=== PATIENT | male | born 1945 | race Caucasian/White ===

== ENCOUNTER → 2017-01-08 | Day surgery (SDC) | payer MEDICARE, OTHER ==
[~2017-01-08] VITALS: Ht 185.4 cm; Wt 123.5 kg
[~2017-01-08] MED LIST: ASCO500T PO; CANA300T PO; CETI-14 PO; CHLORHEXIDINE GLUCONATE 2 % 1 PACK (2 CLOTHS) TOPICAL PRN; CYCLOPENTOLATE HCL 1% OPHT SOLN 2 ML BTL ONE; DIFL0.0512 LEFT EYE; FERR324T4 PO; FURO40TA PO; HIGHTAB3 PO; HYALURONIDASE/LIDOCAINE/EPINEPHRINE/BUPIVACAINE 4.5 ML SYR LEFT EYE ONE; HYALURONIDASE/LIDOCAINE/EPINEPHRINE/BUPIVACAINE 6 ML SYR LEFT EYE ONE; INSULIN HUMAN REGULAR 1,000 UNITS/10 ML VIAL SQ PRN; LACTATED RINGER'S 1000 ML IV PRN; LANTUS2P SQ; LISI10TA3 PO; LYRI150C PO; LYRI75CA PO; METF1000 PO; METOPROLOL TARTRATE 25 MG TAB PO PRN; NEPA0.3D LEFT EYE; NEXI40CA PO; NRDRIP SQ; OCUVTAB PO; ONDANSETRON HCL 4 MG/2 ML VIAL IV PUSH ONE; PHENYLEPHRINE HCL 10% OPTH SOLN 5 ML BTL ONE; PIOG45TA3 PO; POTA10TA15 PO; POVIDONE IODINE 5% (ANTISEPSIS KIT) 4 APPLICATIONS EACH NARE PRN; PROPOFOL 200 MG/20 ML AMP ONE; ROSU1TAB6 PO; SODIUM CHLORID 0.9% 500 ML IV PRN; TOBRAMYCIN/DEXAMETHASONE OPTH OINT 3.5 GM TUBE ONE; TROPICAMIDE 1% OPHT SOLN 15 ML BTL ONE
[2017-01-08 08:30] VITALS: BP 130/60; PULSE 60; RESP 16; TEMP 98; O2SAT 100
[2017-01-08 08:35] VITALS: PULSE 60
[2017-01-08] MEDS: PHENYLEPHRINE HCL 10% OPTH SOLN 5 ML BTL LEFT EYE SCH ×3 (08:35→08:45)
[2017-01-08] MEDS: TROPICAMIDE 1% OPHT SOLN 15 ML BTL LEFT EYE SCH ×3 (08:35→08:45)
[2017-01-08] MEDS: CYCLOPENTOLATE HCL 1% OPHT SOLN 2 ML BTL LEFT EYE SCH ×3 (08:35→08:45)
[2017-01-08] MEDS: TETRACAINE 0.5% OPTH SOLN 4 ML BTL LEFT EYE SCH ×3 (08:35→08:45)
[2017-01-08 09:17] VITALS: PULSE 60
[2017-01-08 10:02] VITALS: TEMP 97.2
--- NOTE | 2017-01-08 10:11 | PD.OP ---
Operative Report Date of Surgery: Jan 08, 2017 Preoperative Diagnosis: (1) Nuclear sclerotic cataract of left eye Postoperative Diagnosis: (1) Pseudophakia of left eye Procedure: phacoemulsification and intraocular lens implant left eye Anesthesia: retrobulbar block, MAC Surgeon: Carolyn Herrera Corporate Development Analyst(s): none Operation and Findings: Patient was consented for surgery, given a retrobulbar block by anesthesia, and taken back to the operating room. He was prepped and draped in the usual sterile fashion for ophthalmic surgery. A wire lid speculum was placed in the left eye. A paracentesis incision was created at the 5 o'clock position on the limbus. Vision blue dye and viscoelastic was injected into the anterior chamber. The main incision was created at the 2 o'clock position on the limbus with a 2.4 mm keratome. A continuous curvilinear capsulorrhexis was made on the anterior lens capsule. Hydrodissection was used to separate the lens from the capsule. Phacoemulsification was used to remove the lens nucleus material. Irrigation and aspiration was used to remove the remaining cortical material. The lens implant ([id number] 20.5D SN [id number]) was placed in the capsular bag. Viscoelastic was removed with irrigation and aspiration. The incisions were irrigated and found to be watertight. Tobradex ointment, a patch, and shield were placed on the left eye. The patient was sent to PACU in stable condition. Carolyn Herrera MD Jan 08, 2017 10:11
[2017-01-08 10:40] VITALS: BP 120/59; PULSE 65; RESP 16; O2SAT 98
== END | disposition home or self-care (01) ==
LOC: PHSDC 07:23
PROVIDERS: ATTEND Ophthalmology
DX: H25.12 Age-related nuclear cataract, left eye (principal); Z96.1 Presence of intraocular lens; E11.9 Type 2 diabetes mellitus without complications; Z79.4 Long term (current) use of insulin
CPT/HCPCS: 00142; 66984; 82948; J2405; J7040; V2632

== ENCOUNTER → 2017-04-15 | Day surgery (SDC) | payer MEDICARE, OTHER ==
[~2017-04-15] MED LIST changes: -CHLORHEXIDINE GLUCONATE 2 % 1 PACK (2 CLOTHS) TOPICAL PRN; -CYCLOPENTOLATE HCL 1% OPHT SOLN 2 ML BTL ONE; +DEXAMETHASONE SOD PHOS 4 MG/ML VIAL IV ONE; +GENTAMICIN SULFATE 80 MG/2 ML VIAL ONE; -HIGHTAB3 PO; -HYALURONIDASE/LIDOCAINE/EPINEPHRINE/BUPIVACAINE 4.5 ML SYR LEFT EYE ONE; -HYALURONIDASE/LIDOCAINE/EPINEPHRINE/BUPIVACAINE 6 ML SYR LEFT EYE ONE; -INSULIN HUMAN REGULAR 1,000 UNITS/10 ML VIAL SQ PRN; +LACTATED RINGER'S 1000 ML INJ 1,000 ML ONE; -LACTATED RINGER'S 1000 ML IV PRN; +LIDOCAINE HCL 1% PF 5 ML AMPULE OTHER ONE; -METOPROLOL TARTRATE 25 MG TAB PO PRN; +MIDAZOLAM HCL 2 MG/2 ML VIAL ONE; -ONDANSETRON HCL 4 MG/2 ML VIAL IV PUSH ONE; -PHENYLEPHRINE HCL 10% OPTH SOLN 5 ML BTL ONE; -POVIDONE IODINE 5% (ANTISEPSIS KIT) 4 APPLICATIONS EACH NARE PRN; +PROPOFOL 200 MG/20 ML AMP IV ONE; -PROPOFOL 200 MG/20 ML AMP ONE; -SODIUM CHLORID 0.9% 500 ML IV PRN; +SODIUM CHLORIDE 0.9% 100 ML MINIBAG IV ONE; -TOBRAMYCIN/DEXAMETHASONE OPTH OINT 3.5 GM TUBE ONE; -TROPICAMIDE 1% OPHT SOLN 15 ML BTL ONE
--- NOTE | 2017-04-15 12:21 | TN ---
cc: SHAY CURRY M.D. DATE OF SURGERY 04/15/2017 PREOPERATIVE DIAGNOSIS Urethral stricture and (ICD-10 code N35.9) POSTOPERATIVE DIAGNOSIS Urethral stricture and (ICD-10 code N35.9) PROCEDURE Direct visual internal urethrotomy (DVIU) (CPT code 01176) INDICATIONS Mr. Anton is a 71-year-old gentleman who recently underwent a local cystourethroscopy for lower urinary tract symptoms with a history of a urethral stricture and was found to have a pendulous urethral stricture who presents now for definitive treatment. FINDINGS The pendulous urethra shows a long approximately a centimeter dense fibrous stricture. Once past that stricture, there are no additional strictures within the urethra. The prostate shows some bilateral hyperplasia with an elevated and mildly obstructed bladder neck. There is some mild trabeculations of the bladder, but no tumors, diverticula, cellules, or calcifications. The ureteral orifice is normal size, shape and position effluxing clear urine bilaterally. PROCEDURE IN DETAIL The procedure, as well as risks and benefits were explained to the patient. Informed consent was obtained. The patient was taken to the major operative theater where he was placed in the supine position. The patient was identified, as well as the operative site. A universal time-out was performed in the standard fashion. At this time, general anesthetic and prophylactic intravenous antibiotics consisting of gentamicin 80 mg was administered. After adequate anesthetic, the patient was placed in low dorsolithotomy position, prepped and draped in the usual sterile fashion. At this time, a 22.5 [place]er cystoscope with a 30 degree lens was inserted into urethra to the level of the stricture. At this time, a 0.035 inches hybrid guidewire was then placed through the strictured area and presumably into the bladder. The cystoscope was removed leaving the guidewire in place which was attached to the drape. Then using an optical urethrotome with a serrated blade, direct visual internal urethrotomy was performed in standard fashion at the 12 o'clock position. The entire stricture was incised to an appropriate channel, then the scope was placed into the bladder and inspection of bladder was performed with the above findings. At this time, the cystoscope was removed and an 18-[place]er Coud tipped catheter was placed without difficulty into the bladder and placed to straight drain with clear urine effluxing. 10 cc of sterile water was insufflated into the balloon and placed to straight drain. There was no evidence of any active bleeding. The patient tolerated the procedure well, emerged from anesthetic without difficulty and was transferred to the recovery in stable condition to be discharged home when criteria is met. The patient will maintain the catheter for approximately 48-72 hours. MD KERRI Castillo/NAVA /12:06 PM /12:12 PM
== END | disposition home or self-care (01) ==
LOC: ESDC 08:48
PROVIDERS: ATTEND Urology
DX: N35.9 Urethral stricture, unspecified (principal); E11.9 Type 2 diabetes mellitus without complications; Z79.4 Long term (current) use of insulin
CPT/HCPCS: 00910; 52276; 82948; C1769; J1100; J1580; J2250; J3010; J7120

== ENCOUNTER → 2017-04-24 | Day surgery (SDC) | payer MEDICARE, OTHER ==
[~2017-04-24] VITALS: Ht 185.4 cm; Wt 128.8 kg
[~2017-04-24] MED LIST changes: +ACETAMINOPHEN 1000 MG/100 ML 100 ML IV ONE; +ACETAMINOPHEN 500 MG CPLT PO PRN; +ATROPINE SULFATE 1% OPHT SOLN 2 ML BTL ONE; +BALANCED SALT SOLN OPHT IRRIG 15 ML BTL ONE; +CHLORHEXIDINE GLUCONATE 2 % 1 PACK (2 CLOTHS) TOPICAL PRN; +DEXAMETHASONE SOD PHOS 4 MG/ML VIAL ONE; +DO NOT ADM ANY ANTICOAGULANT DRUGS PRN; +EPINEPHrine HCL (1:1000) 1 MG/ML VIAL ONE; +FAMOTIDINE 20 MG/2 ML VIAL ONE; -GENTAMICIN SULFATE 80 MG/2 ML VIAL ONE; +INSULIN HUMAN REGULAR 1,000 UNITS/10 ML VIAL SQ PRN; -LACTATED RINGER'S 1000 ML INJ 1,000 ML ONE; +LACTATED RINGER'S 1000 ML IV PRN; +METOPROLOL TARTRATE 25 MG TAB PO PRN; +MIDAZOLAM HCL 2 MG/2 ML VIAL IV ONE; -MIDAZOLAM HCL 2 MG/2 ML VIAL ONE; +MORPHINE SULFATE 4 MG/ML INJ IV ONE; +ONDANSETRON HCL 4 MG/2 ML VIAL IM PRN; +ONDANSETRON HCL 4 MG/2 ML VIAL IV PUSH ONE; +ONDANSETRON HCL 4 MG/2 ML VIAL IV PUSH PRN; +PHENYLEPH/NS 1000 MCG/10 ML SYR IV ONE; +POVIDONE IODINE 5% (ANTISEPSIS KIT) 4 APPLICATIONS EACH NARE PRN; +SODIUM CHLORID 0.9% 500 ML IV PRN; -SODIUM CHLORIDE 0.9% 100 ML MINIBAG IV ONE; +STERILE WATER FOR INJECTION 20 ML VIAL ONE; +TOBRAMYCIN/DEXAMETHASONE OPTH OINT 3.5 GM TUBE ONE; +TRIAMCINOLONE ACETONIDE/PF 40 MG/ML OPTH VIAL ONE; +ceFAZolin INJ 1,000 MG VIAL ONE; +ePHEDrine/NS 25 MG/5 ML SYR IV ONE; +oxyCODONE/ACETAMINOPHEN 5 MG/325 MG TAB PO PRN
[2017-04-24 06:45] LABS: AUTOMATED NEUTROPHIL # 3.9 TH/MM3 (1.8-7.7); BASOPHIL # 0.1 TH/MM3 (0-0.2); BASOPHIL % 0.9 % (0.0-2.0); EOSINOPHIL # 0.3 TH/MM3 (0-0.4); EOSINOPHIL % 4.9 % (0.0-4.0); HEMATOCRIT 32.1 % (39.0-51.0); HEMO FLAGS DIFF FINAL; LYMPH % 25.7 % (9.0-44.0); LYMPHOCYTE # 1.7 TH/MM3 (1.0-4.8); MEAN CELL VOLUME 84.4 FL (80.0-100.0); MEAN CORPUSCULAR HEMOGLOBIN 28.5 PG (27.0-34.0); MEAN CORPUSCULAR HGB CONC 33.8 % (32.0-36.0); NEUT % 58.5 % (16.0-70.0); PLATELET COUNT 179 TH/MM3 (150-450); RED BLOOD COUNT 3.81 MIL/MM3 (4.50-5.90); RED CELL DISTRIBUTION WIDTH 15.4 % (11.6-17.2); WHITE BLOOD COUNT 6.7 TH/MM3 (4.0-11.0)
[2017-04-24] MEDS: TROPICAMIDE 1% OPHT SOLN 15 ML BTL LEFT EYE SCH ×4 (06:51→07:35)
[2017-04-24] MEDS: CYCLOPENTOLATE HCL 1% OPHT SOLN 2 ML BTL LEFT EYE SCH ×4 (06:51→07:35)
[2017-04-24] MEDS: PHENYLEPHRINE HCL 2.5% OPTH SOLN 2 ML BTL LEFT EYE SCH ×4 (06:51→07:35)
[2017-04-24] MEDS: ATROPINE SULFATE 1% OPHT SOLN 5 ML BTL LEFT EYE SCH ×4 (06:51→07:35)
--- NOTE | 2017-04-24 08:12 | EKG ---
Date Performed: 04/24/2017 Time Performed: 06:47:05 PTAGE: 71 years EKG: SINUS BRADYCARDIA WITH FIRST DEGREE AV BLOCK MARKED LEFT AXIS DEVIATION RIGHT BUNDLE BRANCH BLOCK ABNORMAL ECG Since PREVIOUS TRACING , new RBBB PREVIOUS TRACIN03/08/1999 16.03 DOCTOR: Valentine Mattson Interpretating Date/Time 04/24/2017 08:10:57
[2017-04-24 11:30] VITALS: BP 118/57; PULSE 70; RESP 16; TEMP 97.6; O2SAT 95
--- NOTE | 2017-04-24 12:55 | MP ---
cc: JUNIOR AMAYA M.D. DATE OF SURGERY 04/24/2017 PREOPERATIVE DIAGNOSIS Visually significant epiretinal membrane with lamellar hole left eye. POSTOPERATIVE DIAGNOSIS Visually significant epiretinal membrane with lamellar hole left eye. PROCEDURE Trans pars plana vitrectomy with membranectomy, endolaser photocoagulation, and air-fluid exchange, left eye. SURGEON Dr. Junior Amaya ANESTHESIA General laryngeal mask anesthesia. INDICATIONS FOR PROCEDURE Mr. Anton is a 71-year-old gentleman with a history of diabetic retinopathy who developed an epiretinal membrane and lamellar hole with decreasing vision down to the 20/100 level. This was accompanied by a persistent edema. He wished to proceed electively with a vitrectomy and membrane peel. The intraoperative use of Kenalog was discussed with the patient. He wished to proceed and an informed consent was obtained. No guarantee was made as to visual outcome. OPERATIVE PROCEDURE He was brought to [facility] Operating Room #1 and placed on an eye gurney. Appropriate anesthesia monitoring devices were applied and he was placed under general anesthesia using laryngeal mask. The left eye was prepped and draped in the usual sterile fashion. A lid speculum was placed. At this time an appropriate time-out was called with all of the surgical team agreeing to the proposed surgical site and procedure. Using the Richard 23-gauge vitrectomy system, the trocar cannulas were placed 3.5 mm posterior to the limbus after first displacing the conjunctiva and with a beveled entrance through the sclera. The first one was placed at approximately 03:15 o'clock and verified to be in the posterior chamber. An infusion cannula was affixed to it and it was turned on. Two additional trocar cannulas were placed in similar fashion at approximately 10 and 2 o'clock. A small amount of Kenalog was injected to help view the vitreous and the eye was entered with the Endo-spring inspector light pipe and vitrectomy cutter. Using the flat contact lens, a core vitrectomy was carried out, followed by use of the BIOM wide-angle viewing system to remove the more peripheral vitreous. Some scattered hemorrhages in the peripheral retina were noted due to his diabetic retinopathy. Next, ICG was placed into the posterior chamber and allowed to settle on the macula. It was then removed with aspiration. Using the flat contact lens, a very thin membrane was peeled from the superior macula down to the inferotemporal macula and removed with the soft-tip linear extrusion needle. One small hemorrhage occurred on the retinal surface at about 10 o'clock outside of the fovea. It was self-contained. Next, using the endolaser light probe, the peripheral retina was treated inferiorly and temporally with a total of 756 laser spots and a power of 250 milliwatts and 0.1-second exposure. The plugs were put placed back in the eye and the fundus was inspected with the indirect ophthalmoscope and scleral depression. No retinal breaks were found. Next, using the soft-tip linear extrusion needle, an air-fluid exchange was performed. The cannulas were then removed one by one with tamponade of the site with a cotton swab and diathermy to the overlying conjunctival wound. This left the eye with good pressure and no visible air leaks. Atropine drops were placed on the cornea followed by subconjunctival injections of 0.1 cc or 4 mg of subconjunctival Kenalog, 125 mg in 0.5 cc of Ancef and Decadron 2 mg in 0.5 cc. Atropine drops were placed on the cornea, the lid speculum was removed and the patient was undraped. TobraDex ointment was placed on the cornea and then the left eye was patched and shielded. The patient had the laryngeal mass removed in the room and was returned to Recovery laying on his right side. When awake and alert he will be asked to assume a face-down position overnight. MD ROSY Wynne/CORI /10:01 AM /12:38 PM
== END | disposition home or self-care (01) ==
LOC: HSDC 05:38
PROVIDERS: ATTEND Ophthalmology
DX: H35.372 Puckering of macula, left eye (principal); E11.319 Type 2 diabetes mellitus with unspecified diabetic retinopathy without macular edema; I44.0 Atrioventricular block, first degree; I45.10 Unspecified right bundle-branch block; E78.00 Pure hypercholesterolemia, unspecified; I10 Essential (primary) hypertension; K21.9 Gastro-esophageal reflux disease without esophagitis; D64.9 Anemia, unspecified; F17.210 Nicotine dependence, cigarettes, uncomplicated; Z79.4 Long term (current) use of insulin; Z79.899 Other long term (current) drug therapy
CPT/HCPCS: 00145; 67039; 67041; 82948; 85025; 93005; J0131; J0171; J0690; J1100; J2250; J2270; J2370; J2405; J3010; J3300; J7120